=== PATIENT | male | born 1985 | race Caucasian/White ===

== ENCOUNTER 2016-10-28 16:27 | Emergency (ER) | payer OTHER ==
[~2016-10-28] VITALS: Ht 185.4 cm; Wt 115.7 kg
[2016-10-28] MEDS ORDERED: ANTIDEPRESSANT MED PO (16:42)
[2016-10-28] MEDS ORDERED: predniSONE 20 MG TAB PO ONE (18:15)
[2016-10-28] MEDS ORDERED: NORCO, ANEXSIA 5/325MG TABLET (HYDROcodone/ACETAMINOPHEN) PO ONE (18:15)
[2016-10-28] MEDS ORDERED: IPRATROPIUM 0.5MG/ALBUTEROL 2.5MG INH SOL UD 3ML (DUONEB)(J7620) NEB ONE (18:15)
[2016-10-28] MEDS ORDERED: ALBUTEROL SULFATE 2.5 MG/0.5 ML INH NEB SOLN NEB ONE (18:15)
--- NOTE | 2016-10-28 18:30 | REP ---
PA and lateral chest: Comparison is 08/09/2015. The lung brown are clear. The cardiac size is normal The ashley, mediastinum, and bony thorax are unremarkable. Impression: Negative PA and lateral chest. Signed by León Villagomez MD 10/28/2016 06:22 P
[2016-10-28] MEDS ORDERED: PRED20TA PO (19:15)
[2016-10-28] MEDS ORDERED: ALBU17IN2 INH (19:15)
[2016-10-28] MEDS ORDERED: ALBUTEROL 90 MCG/ACT 8GM HFA INHALER INH ONE (19:15)
[2016-10-28 19:21] VITALS: BP 132/58
--- NOTE | 2016-10-29 08:21 | ECGEPIP ---
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 RBBB BENIGN EARLY REPOLARIZATION NO PRIORS Electronically Signed On 10-29-2016 8:21:46 EDT by Deion Morgan
== END 2016-10-28 19:20 | disposition home or self-care (01) ==
LOC: M ED 18:05
DX: J45.901 Unspecified asthma with (acute) exacerbation (principal); J06.9 Acute upper respiratory infection, unspecified; I10 Essential (primary) hypertension; E11.9 Type 2 diabetes mellitus without complications; F41.9 Anxiety disorder, unspecified; Z87.820 Personal history of traumatic brain injury; Z79.899 Other long term (current) drug therapy; F17.210 Nicotine dependence, cigarettes, uncomplicated